=== PATIENT | male | born 1960 | race Caucasian/White ===

== ENCOUNTER → 2019-01-30 11:34 | Outpatient (CLI) | payer MEDICARE, SELFPAY ==
--- NOTE | 2019-01-30 11:43 | CT_ITS ---
CT abdomen pelvis wo con CLINICAL INDICATION: ITS.REASON: LEFT LOWER QUAD PAIN, LEFT FLANK PAIN, HEMATURIA ORDERING PHYSICIAN: Linda Craven APRN PATIENT AGE: 58 years COMPARISON: None TECHNIQUE: Axial images obtained with sagittal and coronal reformats. All CT scans at the facility use one or more dose reduction, viz: automated exposure control, ma/kV adjustment per patient size (including targeted exams where dose is matched to indication, i.e. head), or iterative reconstruction technique. PROCEDURE: Oral Contrast: None IV Contrast: None . FINDINGS: Lung bases are clear. There is diffuse fatty liver infiltration. The gallbladder, spleen, and adrenal glands and pancreas have an unremarkable unenhanced CT appearance. There is a 10 mm nonobstructing stone in the mid polar region of the left kidney. No ureteral calculi are evident. No evidence of appendicitis. There is pancolonic diverticulosis. There is thickening of the proximal sigmoid colon in the left lower quadrant with stranding of the pericolic fat with prominent inflammatory changes surrounding the colon. There are 2 foci of mixed gas and soft tissue density in the left lower quadrant adjacent to the sigmoid colon. This could represent prominent diverticula with inflammatory change. Either one of these areas could represent a contained perforation is well. No distant free air is evident.. No free fluid in the pelvis. No acute bony findings. IMPRESSION: 1. Acute diverticulitis of the sigmoid colon. 2. Prominent inflamed diverticula versus small contained perforations adjacent to the sigmoid colon. No distant free air is evident. Follow-up suggested to confirm resolution. 3. 10 mm nonobstructing stone in the left kidney
== END ==
PROVIDERS: PCP Nurse Practitioner Family; Visit Provider Nurse Practitioner Family
DX: R10.32 Left lower quadrant pain (principal); R31.29 Other microscopic hematuria; R10.9 Unspecified abdominal pain
CPT/HCPCS: 74176

== ENCOUNTER → 2019-01-31 13:03 | Outpatient (CLI) | payer MEDICARE, SELFPAY | PROVIDERS: Visit Provider Nurse Practitioner Family | DX: R10.32 Left lower quadrant pain (principal); R31.29 Other microscopic hematuria | CPT/HCPCS: 87086 ==

== ENCOUNTER 2019-02-05 22:40 | Inpatient (IN) ==
[2019-02-05 23:04] LABS: Basophils % 0.3 % (0.1-2.0); Eosinophils # 0.1 K/mm3 (0.0-0.4); Eosinophils % 1.1 % (0.1-12.0); Hematocrit 46.5 % (42.0-52.0); Hemoglobin 14.5 g/dL (14.1-18.0); Lymphocytes # 1.7 K/mm3 (0.7-4.5); Lymphocytes % 13.8 % (10-50); Mean Corpuscular HGB Conc 31.2 g/dL (31.8-35.4); Mean Corpuscular Hemoglobin 27.8 pg (27.0-31.2); Mean Corpuscular Volume 88.9 fl (80-94); Mean Platelet Volume 7.1 fl (7.4-10.4); Monocytes # 0.9 K/mm3 (0.1-1.0); Neutrophils # 9.6 K/mm3 (1.8-7.8); Neutrophils % 77.8 % (37.0-80.0); Platelet Count 291 K/mm3 (142-424); Red Blood Count 5.23 M/mm3 (4.60-6.20); Red Cell Distribution Width 13.4 % (11.5-17.5); White Blood Count 12.4 K/mm3 (4.8-10.8)
[2019-02-05 23:16] LABS: Albumin Level 3.5 gm/dL (3.4-5.0); Anion Gap 14.6 mEq/L (5-15); Bilirubin,Total 0.7 mg/dL (0.2-1.0); C-Reactive Protein 3.6 mg/L (0.0-0.9); Calcium 8.2 mg/dL (8.5-10.1); Globulin 3.6 gm/dl (1.3-3.2); Potassium 3.6 mmoL/L (3.5-5.1); Total Protein,Serum 7.1 gm/dL (6.4-8.2)
[2019-02-05 23:38] LABS: Erythrocyte Sedimentation Rate 4 mm/hr (0-20)
--- NOTE | 2019-02-05 23:59 | Emergency Department Note ---
ED Disposition Clinical Impression: Diverticulitis Disposition: Admitted As Inpatient Condition on Discharge: Good - Critical Care Critical Care Time: No Attestation: On 02/05/19, the high probability of a clinically significant, sudden or life threatening deterioration of the following system(s) required my full and direct attention, intervention and personal management. The time I documented below is in addition to time spent performing reported procedures but includes the following listed in this critical care notation. Medical Decision Making - Medical Records Medical records reviewed: Yes: I reviewed the patient's medical records. - Tez Inquiry Pt receiving controlled substance: No Vital Signs: 02/05/19 22:47 02/05/19 23:41 Temperature 98.2 F Temperature Source Oral Pulse Rate [Right Brachial] 98 H 89 Respiratory Rate 16 15 Blood Pressure [Right Arm] 164/96 H 158/85 H Blood Pressure Mean [Right Arm] 118 109 02 Sat by Pulse Oximetry 98 98 Oxygen Delivery Method Room Air Room Air - Lab Data Lab results reviewed: Yes: I reviewed the patient's lab results. Lab Results 02/05/19 22:55: WBC 12.4 H, RBC 5.23, Hgb 14.5, Hct 46.5, MCV 88.9, MCH 27.8, MCHC 31.2 L, RDW 13.4, Plt Count 291, MPV 7.1 L, Neut % (Auto) 77.8, Lymph % (Auto) 13.8, [place] % (Auto) 7.0, Eos % (Auto) 1.1, Baso % (Auto) 0.3, Neut # (Auto) 9.6 H, Lymph # (Auto) 1.7, [place] # (Auto) 0.9, Eos # (Auto) 0.1, Baso # (Auto) 0.0, ESR 4 02/05/19 22:55: Sodium 140, Potassium 3.6, Chloride 101, Carbon Dioxide 28, Anion Gap 14.6, BUN 16, Creatinine 1.14, Estimated Creat Clear 94, Estimated GFR 66, Est GFR ( Amer) 80, Glucose 102, Calcium 8.2 L, Total Bilirubin 0.7, AST 16, ALT 42, Alkaline Phosphatase 65, C-Reactive Protein 3.6 H, Total Protein 7.1, Albumin 3.5, Globulin 3.6 H, Albumin/Globulin Ratio 1.0 L, Amylase 39, Lipase 121 02/05/19 22:55: Lactate 1.1 02/06/19 00:03: Urine Color Yellow, Urine Appearance Clear, Urine pH 6.0, Ur Specific [place] <= 1.005, Urine Protein Negative, Urine Glucose (UA) Negative, Urine Ketones Negative, Urine Blood Negative, Urine Nitrate Negative, Urine Bilirubin Negative, Urine Urobilinogen 0.2, Ur Leukocyte Esterase Negative, Amorphous Sediment Trace Result diagrams: 02/05/19 22:55 02/05/19 22:55 Orders (Tests/Meds): ED MEDICATIONS Generic Name Dose Route Start Last Admin Trade Name Freq PRN Reason Stop Dose Admin Sodium Chloride 1,000 mls @ 999 mls/hr 02/05/19 23:00 02/05/19 23:02 Sod Chlor 0.9% 1000ml Bag IV 02/06/19 00:00 999 mls/hr .Q1H1M YANETH Administration Piperacillin Sod/Tazobactam 100 mls @ 200 mls/hr 02/06/19 00:15 02/06/19 00:13 Sod 4.5 gm/ Sodium Chloride IV 02/20/19 00:14 200 mls/hr Q6H YANETH Administration Protocol Discontinued Medications Generic Name Dose Route Start Last Admin Trade Name Freq PRN Reason Stop Dose Admin Ketorolac Tromethamine 30 mg 02/05/19 22:52 02/05/19 23:02 Toradol 30mg/Ml Vial IV 02/05/19 22:53 30 mg ONCE ONE Administration ORDERS Category Date Time Status CT abdomen pelvis wo con Stat Cat Scan 02/05/19 22:52 Taken - CT Data CT Scan: Abdomen, Pelvis Time Received: 00:[address] Reviewed: Yes: I have viewed the radiologist's interpretation Preliminary Findings: Abnormal (see report ) - Physician Consults Physician Consulted: heladio Reason -: Admission Nausea/Vomiting/Diarrhea HPI - General Chief complaint: Abdominal Pain Stated complaint: Cramping and fever Time Seen by Provider: 02/05/19 23:54 Mode of Arrival: Ambulatory Source of Information: Patient, Spouse, Medical Record Limitations: No Limitations Description of Symptoms (Recalled from ER Triage Doc. by RN): Seen by PCP and then ED on Saturday, dx with Diverticulitis, started on Abx and Steriods, told if not any better or the stomach cramping got worse to return to ED. Thinks he was running a fever at home, but does not have a thermometer - afebrile at present. Pain in LLQ and radiating to the mid abdomen. - History of Present Illness HPI Narrative: persistant pain with dec po appetitie and pt presented - for eval - he has been on po abx and has been compliant MD complaint: nausea, abdominal pain Onset (ago): day(s) Associated Abdominal Pain: Yes Location of pain: LLQ Severity: severe Consistency: constant Associated symptoms: denies other symptoms - Related Data Home Medications Medication Instructions Recorded Confirmed ALPRAZolam [Xanax 1mg tab] 1 mg PO BID PRN 02/05/19 02/05/19 Ciprofloxacin HCl [Cipro 500mg 500 mg PO BID 02/05/19 02/05/19 Tab] metroNIDAZOLE [metroNIDAZOLE 500mg 500 mg PO TID 02/05/19 02/05/19 Tablet] Allergies Allergy/AdvReac Type Severity Reaction Status Date / Time No Known Allergies Allergy Verified 02/05/19 22:50 [facility] History - Hepatitis A Screen Drug use history?: No High risk sexual behaviors?: No History of sexually transmitted infection?: No Currently employed?: No Childcare worker?: No Do you have indoor plumbing?: Yes Do you have electricity?: Yes Attestation statement:: This patient has been screened for Hepatitis A risk factors. I have reviewed the patient's past medical history: Yes Medical History: Denies:: Cancer, MRSA Amputation: No Fractures: No - Social History Alcohol Intake: never Occupational Status: employed Housing: house - Psychiatric History Expresses thoughts of harming self/others: None Suicide Plan Description: No Plan ROS Obtained: Yes All systems reviewed & no additional complaints - Constitutional Constitutional: Denies fever(s) - Eyes Eyes: Denies change in vision - ENT Ears, Nose, Mouth, and Throat: Denies sore throat - Cardiovascular Cardiovascular: Denies chest pain - Respiratory Respiratory: No cough - Gastrointestinal Gastrointestingal: Reports: as per HPI, abdominal pain, nausea. Denies: diarrhea, vomiting - Genitourinary Male Genitourinary: Denies hematuria - Musculoskeletal Musculoskeletal: Denies joint swelling - Integumentary/Breasts Skin/Breast: Denies rash - Neurologic Neurologic: Denies seizure-like activity Physical Exam - General General appearance: alert, in no apparent distress - Head Head exam: normocephalic - Eye Eye exam: Present: PERRL, EOMI. Absent: scleral icterus - ENT ENT exam: Present: mucous membranes dry - Neck Neck exam: Absent: trachea midline - Respiratory Respiratory exam: Present: normal lung sounds bilaterally. Absent: respiratory distress - Cardiovascular Cardiovascular exam: Present: regular rate - Abdominal Exam Abdominal exam: Present: soft, tenderness Abdominal tenderness: Present: LLQ, moderate - Extremities Exam Extremities exam: Present: full ROM - Neurological Exam Neurological exam: Present: alert, oriented X3, CN II-XII intact - Psychiatric Psychiatric exam: Present: normal affect - Skin Skin exam: Absent: rash
[2019-02-06 00:09] LABS: Microscopic, Urine URINE MICROSCOPIC (MICROSCOPIC)
[2019-02-06 00:10] LABS: Appearance,Urine CLEAR (Clear); Bilirubin,Urine Negative (Negative); Blood, Urine Negative (Negative); Color,Urine YELLOW (Yellow); Glucose,Urine (UA) Negative (Negative); Ketones,Urine Negative (Negative); Leukocyte Esterase,Urine Negative (Negative); Protein,Urine Negative (Negative); Specific Gravity, Urine <= 1.005 (1.005-1.030); Urobilinogen,Urine 0.2 EU/dl (0.2)
[2019-02-06 00:12] LABS: Amorphous Sediment,Urine Trace /lpf
[2019-02-06 06:48] LABS: Basophils % 0.3 % (0.1-2.0); Eosinophils # 0.1 K/mm3 (0.0-0.4); Eosinophils % 1.1 % (0.1-12.0); Hematocrit 40.9 % (42.0-52.0); Lymphocytes # 1.4 K/mm3 (0.7-4.5); Lymphocytes % 14.3 % (10-50); Mean Corpuscular HGB Conc 31.7 g/dL (31.8-35.4); Mean Corpuscular Hemoglobin 28.2 pg (27.0-31.2); Mean Platelet Volume 6.9 fl (7.4-10.4); Monocytes # 0.8 K/mm3 (0.1-1.0); Monocytes % 7.9 % (1.7-9.3); Neutrophils # 7.5 K/mm3 (1.8-7.8); Neutrophils % 76.3 % (37.0-80.0); Platelet Count 249 K/mm3 (142-424); Red Blood Count 4.59 M/mm3 (4.60-6.20); Red Cell Distribution Width 13.3 % (11.5-17.5); White Blood Count 9.8 K/mm3 (4.8-10.8)
[2019-02-06 06:51] LABS: Anion Gap 11.8 mEq/L (5-15); Calcium 7.8 mg/dL (8.5-10.1); Potassium 3.8 mmoL/L (3.5-5.1)
[2019-02-06 07:02] LABS: Hemoglobin 13.2 g/dL (14.1-18.0)
--- NOTE | 2019-02-06 07:28 | Pharmacy Consult Notes ---
[facility] Pharmacy VTE Monitoring - Patient Demographics Admission date: 02/05/19 Report Date: 02/06/19 Time: 07:28 Allergies/Adverse Reactions: Patient Allergies No Known Allergies Allergy (Verified 02/05/19 22:50) Height: 1.68 m Weight: 95.056 kg Patient Problems: Current Active Problems (Updated 02/06/19 @ 00:20 by Carlos John MD) Diverticulitis (Acute) - VTE Risk Labs: VTE Related Lab Results Hgb 13.2 g/dL (14.1-18.0) L 02/06/19 06:16 Hct 40.9 % (42.0-52.0) L 02/06/19 06:16 Plt Count 249 K/mm3 (142-424) 02/06/19 06:16 BUN 13 mg/dL (7-18) 02/06/19 06:16 Creatinine 0.98 mg/dL (0.70-1.30) 02/06/19 06:16 Estimated Creat Clear 109 mL/min (50-200) 02/06/19 06:16 Was VTE Risk Assessment Performed: Yes VTE Score: 2 VTE Risk Level: Very Low Risk Clinical Trial Participant: No - Prophylaxis Types of VTE Prophylaxis: TEDS Knee High
--- NOTE | 2019-02-06 08:08 | Consult Report ---
*Admission Date: 02/05/19 *Reason for consult:: DIVERTICULITIS *History of present illness: Patient is a 58-year-old white male from [place]. He states that about 2 weeks ago he began experiencing some suprapubic and lower abdominal pain and tenderness. This persisted and he ultimately was seen as an outpatient by his primary care provider 1 week ago. He had a CT scan and was diagnosed with diverticulitis. Patient was started on levofloxacin and metronidazole. He presented to the emergency department late yesterday evening due to some increasing persistent pain and discomfort. He underwent a repeat CT scan which revealed findings confirmed of diverticulitis. Please see radiology report for complete details. He was admitted for inpatient management. He does state that he has had some dark stools. He is never had prior colonoscopy. No documented prior history of diverticulitis. Review of Systems - Review of Systems Review of systems:: pertinent systems reviewed and negative unless documented below - Constitutional Reports anorexia, Denies fever(s) - Eyes Denies loss of vision - ENT Denies abnormal hearing - *Cardiovascular Denies chest pain - *Respiratory Denies shortness of breath - *Gastrointestinal Reports abdominal pain - *Genitourinary Denies difficulty urinating - *Neurologic Denies seizure-like activity - Psychiatric Reports anxiety [facility] History Medical History: Denies:: Cancer, Diabetes Mellitus Type 1, Diabetes Mellitus Type 2, MRSA *Have you ever received a pneumonia vaccine?: No *Have you received a flu vaccine this season?: No Amputation: No Fractures: No - *Social History Educational Level: Attended Grade School Smoking Status: Former smoker Tobacco Type: cigarettes # Packs/Day (cigarettes): 2 Alcohol Intake: current Alcohol Intake Frequency:: a few times a month *Occupational Status:: employed Housing: house *Travel in the last 8 weeks: None - Psychiatric History Expresses thoughts of harming self/others: None Suicide Plan Description: No Plan Family Hx:: Cancer, Heart Attack Meds Home Medications Medication Instructions Recorded Confirmed Type ALPRAZolam [Xanax 1mg tab] 1 mg PO BID PRN 02/05/19 02/05/19 History Ciprofloxacin HCl [Cipro 500mg 500 mg PO BID 02/05/19 02/05/19 History Tab] metroNIDAZOLE [metroNIDAZOLE 500mg 500 mg PO TID 02/05/19 02/05/19 History Tablet] Allergies Allergy/AdvReac Type Severity Reaction Status Date / Time No Known Allergies Allergy Verified 02/05/19 22:50 Exam Vital signs and Labs for Last 24 Hours: Temp Pulse Resp BP Pulse Ox 98.2 F 83 16 124/86 97 02/06/19 07:50 02/06/19 07:50 02/06/19 07:50 02/06/19 07:50 02/06/19 07:50 Laboratory Results - last 24 hr 02/05/19 22:55: WBC 12.4 H, RBC 5.23, Hgb 14.5, Hct 46.5, MCV 88.9, MCH 27.8, MCHC 31.2 L, RDW 13.4, Plt Count 291, MPV 7.1 L, Neut % (Auto) 77.8, Lymph % (Auto) 13.8, [place] % (Auto) 7.0, Eos % (Auto) 1.1, Baso % (Auto) 0.3, Neut # (Auto) 9.6 H, Lymph # (Auto) 1.7, [place] # (Auto) 0.9, Eos # (Auto) 0.1, Baso # (Auto) 0.0, ESR 4 02/05/19 22:55: Sodium 140, Potassium 3.6, Chloride 101, Carbon Dioxide 28, Anion Gap 14.6, BUN 16, Creatinine 1.14, Estimated Creat Clear 94, Estimated GFR 66, Est GFR ( Amer) 80, Glucose 102, Calcium 8.2 L, Total Bilirubin 0.7, AST 16, ALT 42, Alkaline Phosphatase 65, C-Reactive Protein 3.6 H, Total Protein 7.1, Albumin 3.5, Globulin 3.6 H, Albumin/Globulin Ratio 1.0 L, Amylase 39, Lipase 121 02/05/19 22:55: Lactate 1.1 02/06/19 00:03: Urine Color Yellow, Urine Appearance Clear, Urine pH 6.0, Ur Specific [place] <= 1.005, Urine Protein Negative, Urine Glucose (UA) Negative, Urine Ketones Negative, Urine Blood Negative, Urine Nitrate Negative, Urine Bilirubin Negative, Urine Urobilinogen 0.2, Ur Leukocyte Esterase Negative, Amorphous Sediment Trace 02/06/19 06:16: WBC 9.8, RBC 4.59 L, Hgb 13.2 L, Hct 40.9 L, MCV 89.0, MCH 28.2, MCHC 31.7 L, RDW 13.3, Plt Count 249, MPV 6.9 L, Neut % (Auto) 76.3, Lymph % (Auto) 14.3, [place] % (Auto) 7.9, Eos % (Auto) 1.1, Baso % (Auto) 0.3, Neut # (Auto) 7.5, Lymph # (Auto) 1.4, [place] # (Auto) 0.8, Eos # (Auto) 0.1, Baso # (Auto) 0.0 02/06/19 06:16: Sodium 141, Potassium 3.8, Chloride 106, Carbon Dioxide 27, Anion Gap 11.8, BUN 13, Creatinine 0.98, Estimated Creat Clear 109, Estimated GFR 78, Est GFR ( Amer) 95, Glucose 101, Calcium 7.8 L I & O for Last 24 hours: Intake & Output 02/03/19 02/04/19 02/05/19 02/06/19 11:59 11:59 11:59 11:59 Intake Total 1000 / 1000 Balance 1000 / 1000 Weight 209 lb 9 oz - *Routine HEENT Exam Head: Present: normocephalic Eye: Present: EOMI, PERRL ENT: Present: mucous membranes moist - *Routine Neck Exam Present: supple. Absent: lymphadenopathy - *Routine Respiratory Exam Present: CTA bilaterally - *Routine Cardiovascular Exam Present: RRR - *Routine Abdominal Exam Present: soft, normoactive bowel sounds, tenderness Comments: Patient does have tenderness with some guarding without rebound in the suprapubic and left lower quadrant area. - *Routine Extremities Exam Absent: cyanosis, clubbing, edema - *Routine Skin Exam Present: warm. Absent: rash - *Routine Neurological Exam Present: alert, oriented X3 - Detailed Eye Exam Eyelids: Left normal inspection Results - Labs 02/06/19 06:16 02/06/19 06:16 Laboratory Results - last 24 hr 02/05/19 22:55: WBC 12.4 H, RBC 5.23, Hgb 14.5, Hct 46.5, MCV 88.9, MCH 27.8, MCHC 31.2 L, RDW 13.4, Plt Count 291, MPV 7.1 L, Neut % (Auto) 77.8, Lymph % (Auto) 13.8, [place] % (Auto) 7.0, Eos % (Auto) 1.1, Baso % (Auto) 0.3, Neut # (Auto) 9.6 H, Lymph # (Auto) 1.7, [place] # (Auto) 0.9, Eos # (Auto) 0.1, Baso # (Auto) 0.0, ESR 4 02/05/19 22:55: Sodium 140, Potassium 3.6, Chloride 101, Carbon Dioxide 28, Anion Gap 14.6, BUN 16, Creatinine 1.14, Estimated Creat Clear 94, Estimated GFR 66, Est GFR ( Amer) 80, Glucose 102, Calcium 8.2 L, Total Bilirubin 0.7, AST 16, ALT 42, Alkaline Phosphatase 65, C-Reactive Protein 3.6 H, Total Protein 7.1, Albumin 3.5, Globulin 3.6 H, Albumin/Globulin Ratio 1.0 L, Amylase 39, Lipase 121 02/05/19 22:55: Lactate 1.1 02/06/19 00:03: Urine Color Yellow, Urine Appearance Clear, Urine pH 6.0, Ur Specific [place] <= 1.005, Urine Protein Negative, Urine Glucose (UA) Negative, Urine Ketones Negative, Urine Blood Negative, Urine Nitrate Negative, Urine Bilirubin Negative, Urine Urobilinogen 0.2, Ur Leukocyte Esterase Negative, Amorphous Sediment Trace 02/06/19 06:16: WBC 9.8, RBC 4.59 L, Hgb 13.2 L, Hct 40.9 L, MCV 89.0, MCH 28.2, MCHC 31.7 L, RDW 13.3, Plt Count 249, MPV 6.9 L, Neut % (Auto) 76.3, Lymph % (Auto) 14.3, [place] % (Auto) 7.9, Eos % (Auto) 1.1, Baso % (Auto) 0.3, Neut # (Auto) 7.5, Lymph # (Auto) 1.4, [place] # (Auto) 0.8, Eos # (Auto) 0.1, Baso # (Auto) 0.0 02/06/19 06:16: Sodium 141, Potassium 3.8, Chloride 106, Carbon Dioxide 27, Anion Gap 11.8, BUN 13, Creatinine 0.98, Estimated Creat Clear 109, Estimated GFR 78, Est GFR ( Amer) 95, Glucose 101, Calcium 7.8 L Assessment and Plan - Assessment and plan all Dx Assessment and Plan for all problems:: Patient has complicated diverticulitis with failure of outpatient management. I would recommend broad-spectrum intravenous antibiotics. He may go ahead and have a clear liquid diet as there are no indications for absolute immediate urgent surgical intervention at this time. However, I did explain to the patient that he could require surgical intervention with need for colectomy and colostomy if he continues to have clinical deterioration and fail nonoperative management. However, hopefully he shows improvement and is ultimately able to be managed without operative intervention. If so I would plan for a follow-up colonoscopy in several weeks.
--- NOTE | 2019-02-06 17:11 | History & Physical Report ---
*Admission Date: 02/05/19 *Chief complaint: worsening abdominal pain *History of present illness: Mr. Aaron a 58-year-old gentleman initiated on antibiotics 7 days ago for diverticulitis. His symptoms initially began 2 weeks ago with suprapubic pain leading to presentation to the PCP 1 week ago. Had been doing well until the past day or 2 when he developed worsening abdominal pain. The worsening pain caused him to come back to the ER for further assessment. He had a CT scan performed at initial presentation and the diagnosis of diverticulitis. Patient was started on levofloxacin and metronidazole. He presented to the emergency department late yesterday evening due to some increasing persistent pain and discomfort. He underwent a repeat CT scan which revealed findings confirmed of diverticulitis. Please see radiology report for complete details. There is concern for slight increase in pericolonic air bubbles and possible worsening of his diverticulitis. He was admitted for inpatient management. He does state that he has had some dark stools. He is never had prior colonoscopy. No documented prior history of diverticulitis. He was initiated on broad-spectrum antibiotics with transition to Invanz this morning. Currently on a liquid diet. Surgery was consulted for possible colonoscopy versus other intervention pending evaluation. Patient denies any fevers, nausea vomiting, diarrhea, chest pain, shortness of breath, dysuria. [facility] History I have reviewed the patient's past medical history: Yes Medical History: Denies:: Cancer, Diabetes Mellitus Type 1, Diabetes Mellitus Type 2, MRSA *Have you ever received a pneumonia vaccine?: No *Have you received a flu vaccine this season?: No Amputation: No Fractures: No - *Social History Educational Level: Attended Grade School Smoking Status: Former smoker Tobacco Type: cigarettes # Packs/Day (cigarettes): 2 Alcohol Intake: current Alcohol Intake Frequency:: a few times a month *Occupational Status:: employed Housing: house *Travel in the last 8 weeks: None - Psychiatric History Expresses thoughts of harming self/others: None Suicide Plan Description: No Plan Family Hx:: Cancer, Heart Attack Review of Systems - Review of Systems Review of systems:: pertinent systems reviewed and negative unless documented below - *Neurologic Denies abnormal hearing, Denies loss of vision, Denies seizure-like activity Meds Home Medications Medication Instructions Recorded Confirmed Type ALPRAZolam [Xanax 1mg tab] 1 mg PO TID PRN 06/20/19 06/21/19 History Ciprofloxacin HCl [Cipro 500mg 500 mg PO BID 02/05/19 02/05/19 History Tab] metroNIDAZOLE [metroNIDAZOLE 500mg 500 mg PO TID 02/05/19 02/05/19 History Tablet] Allergies Allergy/AdvReac Type Severity Reaction Status Date / Time No Known Allergies Allergy Verified 02/05/19 22:50 Exam Vital signs and Labs for Last 24 Hours: Temp Pulse Resp BP Pulse Ox 98.6 F 81 16 123/82 99 02/06/19 15:30 02/06/19 15:30 02/06/19 15:30 02/06/19 15:30 02/06/19 15:30 Laboratory Results - last 24 hr 02/05/19 22:55: WBC 12.4 H, RBC 5.23, Hgb 14.5, Hct 46.5, MCV 88.9, MCH 27.8, MCHC 31.2 L, RDW 13.4, Plt Count 291, MPV 7.1 L, Neut % (Auto) 77.8, Lymph % (Auto) 13.8, [place] % (Auto) 7.0, Eos % (Auto) 1.1, Baso % (Auto) 0.3, Neut # (Auto) 9.6 H, Lymph # (Auto) 1.7, [place] # (Auto) 0.9, Eos # (Auto) 0.1, Baso # (Auto) 0.0, ESR 4 02/05/19 22:55: Sodium 140, Potassium 3.6, Chloride 101, Carbon Dioxide 28, Anion Gap 14.6, BUN 16, Creatinine 1.14, Estimated Creat Clear 94, Estimated GFR 66, Est GFR ( Amer) 80, Glucose 102, Calcium 8.2 L, Total Bilirubin 0.7, AST 16, ALT 42, Alkaline Phosphatase 65, C-Reactive Protein 3.6 H, Total Protein 7.1, Albumin 3.5, Globulin 3.6 H, Albumin/Globulin Ratio 1.0 L, Amylase 39, Lipase 121 02/05/19 22:55: Lactate 1.1 02/06/19 00:03: Urine Color Yellow, Urine Appearance Clear, Urine pH 6.0, Ur Specific [place] <= 1.005, Urine Protein Negative, Urine Glucose (UA) Negative, Urine Ketones Negative, Urine Blood Negative, Urine Nitrate Negative, Urine Bilirubin Negative, Urine Urobilinogen 0.2, Ur Leukocyte Esterase Negative, Amorphous Sediment Trace 02/06/19 06:16: WBC 9.8, RBC 4.59 L, Hgb 13.2 L, Hct 40.9 L, MCV 89.0, MCH 28.2, MCHC 31.7 L, RDW 13.3, Plt Count 249, MPV 6.9 L, Neut % (Auto) 76.3, Lymph % (Auto) 14.3, [place] % (Auto) 7.9, Eos % (Auto) 1.1, Baso % (Auto) 0.3, Neut # (Auto) 7.5, Lymph # (Auto) 1.4, [place] # (Auto) 0.8, Eos # (Auto) 0.1, Baso # (Auto) 0.0 02/06/19 06:16: Sodium 141, Potassium 3.8, Chloride 106, Carbon Dioxide 27, Anion Gap 11.8, BUN 13, Creatinine 0.98, Estimated Creat Clear 109, Estimated GFR 78, Est GFR ( Amer) 95, Glucose 101, Calcium 7.8 L I & O for Last 24 hours: Intake & Output 02/03/19 02/04/19 02/05/19 02/06/19 23:59 23:59 23:59 23:59 Intake Total 1869 Balance 1869 Weight 94.801 kg 95.056 kg - *Routine HEENT Exam Head: Present: normocephalic Eye: Present: EOMI, PERRL ENT: Present: mucous membranes moist - *Routine Neck Exam Present: supple. Absent: lymphadenopathy - *Routine Respiratory Exam Present: CTA bilaterally - *Routine Cardiovascular Exam Present: RRR - *Routine Abdominal Exam Present: soft Comments: Tender in right and left lower quadrants, exquisite left lower quadrant. No rebound, guarding present with palpation on left - *Routine Rectal Exam Patient deferred: visual exam - *Routine Exam Patient deferred: penile exam - *Routine Extremities Exam Absent: cyanosis, clubbing, edema - *Routine Skin Exam Present: warm. Absent: rash - *Routine Neurological Exam Present: alert, oriented X3. Absent: altered mental status Assessment and Plan (1) Obesity (BMI 30.0-34.9) Current visit: Yes Status: Chronic Category: Medical Code(s): E66.9 - Obesity, unspecified Complicates all aspects of care (2) Diverticulitis Current visit: Yes Status: Acute Category: Medical Code(s): K57.92 - Diverticulitis of intestine, part unspecified, without perforation or abscess without bleeding Failed outpatient therapy. Surgery consulted, appreciate recommendations. Broaden antibiotics to Invanz. Will monitor over the course the weekend to assess for improvement. Recommendations as follows: complicated diverticulitis with failure of outpatient management - broad-spectrum intravenous antibiotics - He may go ahead and have a clear liquid diet as there are no indications for absolute immediate urgent surgical intervention at this time. - if tolerates medical management, would plan for a follow-up colonoscopy in several weeks.
[2019-02-07 06:35] LABS: Basophils % 0.3 % (0.1-2.0); Eosinophils # 0.1 K/mm3 (0.0-0.4); Eosinophils % 1.2 % (0.1-12.0); Hemoglobin 12.7 g/dL (14.1-18.0); Lymphocytes # 1.6 K/mm3 (0.7-4.5); Lymphocytes % 17.6 % (10-50); Mean Corpuscular HGB Conc 31.1 g/dL (31.8-35.4); Mean Corpuscular Volume 90.2 fl (80-94); Mean Platelet Volume 7.1 fl (7.4-10.4); Monocytes # 0.7 K/mm3 (0.1-1.0); Monocytes % 7.2 % (1.7-9.3); Neutrophils # 6.6 K/mm3 (1.8-7.8); Neutrophils % 73.7 % (37.0-80.0); Platelet Count 262 K/mm3 (142-424); Red Blood Count 4.54 M/mm3 (4.60-6.20); Red Cell Distribution Width 13.3 % (11.5-17.5)
[2019-02-07 06:39] LABS: Anion Gap 10.9 mEq/L (5-15); Calcium 7.9 mg/dL (8.5-10.1); Potassium 3.9 mmoL/L (3.5-5.1)
--- NOTE | 2019-02-07 07:50 | Progress Note ---
Internal Medicine - PN: Subj *Date: 02/07/19 *Time: 07:49 Interval history: Patient feels much better, has been ambulating about the room. Has had a couple of soft stools. No blood, no fever. Exam Vital signs and Labs for Last 24 Hours: Temp Pulse Resp BP Pulse Ox 98.1 F 76 17 94/56 L 95 02/07/19 04:36 02/07/19 04:36 02/07/19 04:36 02/07/19 04:36 02/07/19 04:36 Laboratory Results - last 24 hr 02/07/19 05:50: WBC 9.0, RBC 4.54 L, Hgb 12.7 L, Hct 41.0 L, MCV 90.2, MCH 28.0, MCHC 31.1 L, RDW 13.3, Plt Count 262, MPV 7.1 L, Neut % (Auto) 73.7, Lymph % (Auto) 17.6, [place] % (Auto) 7.2, Eos % (Auto) 1.2, Baso % (Auto) 0.3, Neut # (Auto) 6.6, Lymph # (Auto) 1.6, [place] # (Auto) 0.7, Eos # (Auto) 0.1, Baso # (Auto) 0.0 02/07/19 05:50: Sodium 141, Potassium 3.9, Chloride 107, Carbon Dioxide 27, Anion Gap 10.9, BUN 8 D, Creatinine 0.89, Estimated Creat Clear 116, Estimated GFR 87, Est GFR ( Amer) 106, Glucose 93, Calcium 7.9 L I & O for Last 24 hours: Intake & Output 02/04/19 02/05/19 02/06/19 02/07/19 11:59 11:59 11:59 11:59 Intake Total 1000 / 1000 3334 / 3334 Balance 1000 / 1000 3334 / 3334 Weight 209 lb 9 oz 203 lb 1 oz Narrative: Heart rate regular, good air movement, clear lungs. Neurologically intact, pleasant, talkative, walks about the room without problems. Abdomen soft and very minimal tenderness in the left lower quadrant with vigorous palpation, no CVA tenderness, no distal perfusion problems. Assessment and Plan (1) Obesity (BMI 30.0-34.9) Current visit: Yes Status: Chronic Category: Medical Code(s): E66.9 - Obesity, unspecified (2) Diverticulitis Current visit: Yes Status: Acute Category: Medical Code(s): K57.92 - Diverticulitis of intestine, part unspecified, without perforation or abscess without bleeding (3) Diverticulitis of intestine with perforation and bleeding without abscess Current visit: Yes Status: Acute Category: Medical Code(s): K57.81 - Diverticulitis of intestine, part unspecified, with perforation and abscess with bleeding Agree with ongoing conservative management, patient has improved. If labs look good tomorrow and patient has responded to full liquids would consider discharged home with aggressive antibiotic therapy and surgery follow-up for colonoscopy in the near future.
--- NOTE | 2019-02-07 08:32 | Progress Note ---
Subjective Patient reports: feels better Narrative: Patient feels much better. He has been ambulating. He is tolerating clear liquids without any difficulty and has moved his bowels. Exam Vital signs and Labs for Last 24 Hours: Temp Pulse Resp BP Pulse Ox 97.8 F 124 H 16 120/68 97 02/07/19 08:00 02/07/19 08:00 02/07/19 08:00 02/07/19 08:00 02/07/19 08:00 Laboratory Results - last 24 hr 02/07/19 05:50: WBC 9.0, RBC 4.54 L, Hgb 12.7 L, Hct 41.0 L, MCV 90.2, MCH 28.0, MCHC 31.1 L, RDW 13.3, Plt Count 262, MPV 7.1 L, Neut % (Auto) 73.7, Lymph % (Auto) 17.6, [place] % (Auto) 7.2, Eos % (Auto) 1.2, Baso % (Auto) 0.3, Neut # (Auto) 6.6, Lymph # (Auto) 1.6, [place] # (Auto) 0.7, Eos # (Auto) 0.1, Baso # ( Auto) 0.0 02/07/19 05:50: Sodium 141, Potassium 3.9, Chloride 107, Carbon Dioxide 27, Anion Gap 10.9, BUN 8 D, Creatinine 0.89, Estimated Creat Clear 116, Estimated GFR 87, Est GFR ( Amer) 106, Glucose 93, Calcium 7.9 L I & O for Last 24 hours: Intake & Output 02/04/19 02/05/19 02/06/19 02/07/19 11:59 11:59 11:59 11:59 Intake Total 1000 / 1000 4054 / 4054 Balance 1000 / 1000 4054 / 4054 Weight 209 lb 9 oz 203 lb 1 oz - *Routine Abdominal Exam Present: soft. Absent: tenderness Progress Note: A&P (1) Obesity (BMI 30.0-34.9) Status: Chronic Current Visit: Yes (2) Diverticulitis Status: Acute Current Visit: Yes (3) Diverticulitis of intestine with perforation and bleeding without abscess Status: Acute Current Visit: Yes Assessment and Plan for All Diagnoses:: Advance diet. Probable discharge tomorrow with completion of outpatient antibiotics. Colonoscopy in several weeks.
[2019-02-08 07:33] LABS: Basophils % 0.2 % (0.1-2.0); Eosinophils # 0.2 K/mm3 (0.0-0.4); Eosinophils % 1.9 % (0.1-12.0); Hematocrit 41.1 % (42.0-52.0); Lymphocytes # 1.6 K/mm3 (0.7-4.5); Lymphocytes % 20.7 % (10-50); Mean Corpuscular HGB Conc 31.6 g/dL (31.8-35.4); Mean Corpuscular Hemoglobin 28.4 pg (27.0-31.2); Mean Corpuscular Volume 89.9 fl (80-94); Mean Platelet Volume 7.1 fl (7.4-10.4); Monocytes # 0.5 K/mm3 (0.1-1.0); Monocytes % 6.4 % (1.7-9.3); Neutrophils # 5.5 K/mm3 (1.8-7.8); Neutrophils % 70.9 % (37.0-80.0); Platelet Count 251 K/mm3 (142-424); Red Blood Count 4.57 M/mm3 (4.60-6.20); Red Cell Distribution Width 13.3 % (11.5-17.5); White Blood Count 7.8 K/mm3 (4.8-10.8)
[2019-02-08 07:44] LABS: Albumin Level 2.9 gm/dL (3.4-5.0); Albumin/Globulin Ratio 0.8 (1.1-1.8); Anion Gap 10.1 mEq/L (5-15); Bilirubin,Total 0.5 mg/dL (0.2-1.0); Calcium 8.2 mg/dL (8.5-10.1); Globulin 3.5 gm/dl (1.3-3.2); Potassium 4.1 mmoL/L (3.5-5.1); Total Protein,Serum 6.4 gm/dL (6.4-8.2)
--- NOTE | 2019-02-08 08:06 | Discharge Summary ---
General - General Admission date:: 02/06/19 Discharge date: 02/08/19 HPI HPI: Mr. Aaron a 58-year-old gentleman initiated on antibiotics 7 days ago for diverticulitis. His symptoms initially began 2 weeks ago with suprapubic pain leading to presentation to the PCP 1 week ago. Had been doing well until the past day or 2 when he developed worsening abdominal pain. The worsening pain caused him to come back to the ER for further assessment. He had a CT scan performed at initial presentation and the diagnosis of diverticulitis. Patient was started on levofloxacin and metronidazole. He presented to the emergency department late yesterday evening due to some increasing persistent pain and discomfort. He underwent a repeat CT scan which revealed findings confirmed of diverticulitis. Please see radiology report for complete details. There is concern for slight increase in pericolonic air bubbles and possible worsening of his diverticulitis. He was admitted for inpatient management. He does state that he has had some dark stools. He is never had prior colonoscopy. No documented prior history of diverticulitis. He was initiated on broad-spectrum antibiotics with transition to Invanz this morning. Currently on a liquid diet. Surgery was consulted for possible colonoscopy versus other intervention pending evaluation. Patient denies any fevers, nausea vomiting, diarrhea, chest pain, shortness of breath, dysuria. Hospital Course Hospital Course: Patient was admitted, placed on Zosyn and tolerated this very nicely. His pain and swelling of the abdomen resolved very nicely and serial exam showed improvement. CT scan was noted. Surgical consultation agreed with conservative management-much appreciated. Over the next couple days he improved as noted, no fevers. Bowel movements normalized and he was able to eat a full liquid diet. This morning he is doing well, he will be discharged home with Augmentin and clindamycin for the next week. We will see him in our offices on of this week, February 12 for follow-up and to make sure his colonoscopy has been scheduled. Objective Vital signs: Temp Pulse Resp BP Pulse Ox 98.1 F 65 17 113/62 97 02/08/19 04:00 02/08/19 04:00 02/08/19 04:00 02/08/19 04:00 02/08/19 04:00 Narrative: Alert, pleasant. Oriented x3. Lungs clear. Heart rate regular. Abdomen soft, no tenderness in the lower quadrants. No CVA tenderness. No fevers. No distal edema. Results Labs on day of discharge: Labs from last 24 hours 02/08/19 02/08/19 06:36 06:36 WBC 7.8 RBC 4.57 L Hgb 13.0 L Hct 41.1 L MCV 89.9 MCH 28.4 MCHC 31.6 L RDW 13.3 Plt Count 251 MPV 7.1 L Neut % (Auto) 70.9 Lymph % (Auto) 20.7 [place] % (Auto) 6.4 Eos % (Auto) 1.9 Baso % (Auto) 0.2 Neut # (Auto) 5.5 Lymph # (Auto) 1.6 [place] # (Auto) 0.5 Eos # (Auto) 0.2 Baso # (Auto) 0.0 Sodium 142 Potassium 4.1 Chloride 108 H Carbon Dioxide 28 Anion Gap 10.1 BUN 8 Creatinine 0.86 Estimated Creat Clear 120 Estimated GFR 91 Est GFR ( Amer) 110 Glucose 87 Calcium 8.2 L Total Bilirubin 0.5 AST 20 ALT 37 Alkaline Phosphatase 51 Total Protein 6.4 Albumin 2.9 L Globulin 3.5 H Albumin/Globulin Ratio 0.8 L DS: Diagnosis - Discharge Diagnosis (1) Obesity (BMI 30.0-34.9) Status: Chronic (2) Diverticulitis Status: Acute (3) Diverticulitis of intestine with perforation and bleeding without abscess Status: Acute Discharge Plan - Patient Discharge Instructions ACTIVITY: Continue current activity DIET: advance to your usual diet Patient Instructions: Diverticulitis, DI for Diverticulitis - Follow up Plan Follow up with: Bassam Benitez MD [Staff Physician] - 02/12/19 12:00 pm Disposition: Home, Self-Fdc Medications: Home Medications Medication Instructions Recorded Confirmed Type ALPRAZolam [Xanax 1mg tab] 1 mg PO TID PRN 02/05/19 02/06/19 History Ciprofloxacin HCl [Cipro 500mg 500 mg PO BID 02/05/19 02/05/19 History Tab] metroNIDAZOLE [metroNIDAZOLE 500mg 500 mg PO TID 02/05/19 02/05/19 History Tablet] Amoxicillin/Potassium Clav 1 tab PO Q12H #14 tab 02/08/19 Rx [Augmentin 875-125 Tablet] Clindamycin HCl [Clindamycin HCl 300 mg PO Q8 #21 cap 02/08/19 Rx 300mg Cap] Prescriptions/Medication Reconciliation: New Amoxicillin/Potassium Clav [Augmentin 875-125 Tablet] 1 tab PO Q12H #14 tab Clindamycin HCl [Clindamycin HCl 300mg Cap] 300 mg PO Q8 #21 cap Continued ALPRAZolam [Xanax 1mg tab] 1 mg PO TID PRN PRN Reason: Anxiety Discontinued metroNIDAZOLE [metroNIDAZOLE 500mg Tablet] 500 mg PO TID Ciprofloxacin HCl [Cipro 500mg Tab] 500 mg PO BID
== END 2019-02-08 08:45 | disposition home or self-care (01) | DRG 379 ==
LOC: ER 22:40 → 2ND 02-06 00:13
PROVIDERS: ADMIT Internal Medicine Adolescent Medicine; ATTEND Internal Medicine Adolescent Medicine
CPT/HCPCS: 36415; 74176; 80048; 80053; 81001; 82150; 83605; 83690; 85025; 85651; 86140; 96365; 96367; 96375; 99284; J1335; J2543

== ENCOUNTER → 2019-03-18 08:59 | Outpatient (CLI) | payer MEDICARE, SELFPAY ==
[2019-03-18 09:03] LABS: Adenovirus F 40/41, stool Not Detected (NotDetected); Astrovirus Not Detected (NotDetected); Campylobacter Not Detected (NotDetected); Cryptosporidium Not Detected (NotDetected); Cyclospora Cayetanesis Not Detected (NotDetected); Entamoeba histolytica Not Detected (NotDetected); Enteroaggregative E coli Not Detected (NotDetected); Enterotoxigenic E coli Not Detected (NotDetected); Giardia lamblia Not Detected (NotDetected); Norovirus Not Detected (NotDetected); Plesimonas Shigalloides, PCR Not Detected (NotDetected); Rotavirus A Not Detected (NotDetected); Salmonella, PCR Not Detected (NotDetected); Sapovirus Not Detected (NotDetected); Shiga-like toxin E coli Not Detected (NotDetected); Shigella Enterovasive E coli Not Detected (NotDetected); Vibrio Cholerae Not Detected (NotDetected); Vibrio, PCR Not Detected (NotDetected); Yersinia Entercolitica, PCR Not Detected (NotDetected)
[2019-03-18 16:49] LABS: Clostridium Difficile A/B, PCR Detected (NotDetected); Enteropathogenic E coli Detected (NotDetected)
== END ==
PROVIDERS: PCP Internal Medicine Adolescent Medicine; Visit Provider Internal Medicine Adolescent Medicine
DX: A04.71 Enterocolitis due to Clostridium difficile, recurrent (principal); R19.5 Other fecal abnormalities; R19.7 Diarrhea, unspecified
CPT/HCPCS: 87506

== ENCOUNTER → 2020-06-20 10:01 | Outpatient (CLI) | payer MEDICARE, SELFPAY ==
[2020-06-20 11:55] LABS: Coronavirus 19 IgG Antibody Negative (Negative); Coronavirus 19 IgM Antibody Negative (Negative)
== END ==
PROVIDERS: Visit Provider Surgery
DX: Z01.818 Encounter for other preprocedural examination (principal); Z12.11 Encounter for screening for malignant neoplasm of colon; Z86.010 Personal history of colon polyps
CPT/HCPCS: 36415; 86328

== ENCOUNTER 2020-06-21 07:53 | Day surgery (SDC) | payer MEDICARE, SELFPAY ==
[2020-06-15 12:06] VITALS: BMI 34.9
[2020-06-21] VITALS (7 sets, daily range): BP systolic 86–159; BP diastolic 58–89; PULSE 53–79; RESP 16–20; TEMP 36.1–36.6; O2SAT 95–99
--- NOTE | 2020-06-21 09:15 | P.PN_ITS ---
[facility] Anesthesia Checklist - Patient Identification Patient Identification: Arm Band, Verbal (Name & ) - Structural Data Admitted From: Home Planned Operative Procedure/s: colon Consent for Planned Operative Procedure(s) Verified: Yes Verified Documents: History and Physical - NPO Status Verified Time NPO: 00:00 - Additional verifications Patient : No Anesthesia Reactions: No Hx Blood Transfusions: No Blood Transfusion Reaction: No Cephalosporin Allergy: No Previous Colonoscopy: Yes - Cardiovascular Assessment Heart Sounds: S1 & S2 Pulse Strength: Baseline Pulse Rhythm: Regular Peripheral Edema: No - Airway Assessment C-Spine Mobility Assessed: Yes TMJ Mobility Assessed: Yes Dentition: Edentulous - Neurological Assessment Level of Consciousness: Awake, Alert, Appropriate Hx Seizures: No Numbness or tingling in extremities: No - Anesthesia Plan Anesthesia Risk discussed: Yes Anesthesia Plan: Verified ASA Class: II Anesthesia Type: MAC [facility] History I have reviewed the patient's past medical history: Yes Medical History: Reports:: Anxiety Denies:: Cancer, Diabetes Mellitus Type 1, Diabetes Mellitus Type 2, Internal Pacemaker, Lung Disease, MRSA, Seizures *Have you ever received a pneumonia vaccine?: No *Have you received a flu vaccine this season?: No Anesthesia experience/problems:: none Other Surgeries: Yes: No Previous Surgery, Colonoscopy, Other. No: Pacemaker Amputation: No Fractures: No - *Social History Last grade of school completed: None Smoking Status: Former smoker Tobacco Type: cigarettes # Packs/Day (cigarettes): 2 Alcohol Intake: current Alcohol Intake Frequency:: a few times a week Substance Use Type: other *Occupational Status:: disabled Housing: house Household Members: spouse, family, children *Travel in the last 8 weeks: None - Psychiatric History Pschychiatric History:: Reports:: Anxiety Family Hx:: Cancer, Heart Attack
--- NOTE | 2020-06-21 10:03 | P.PCN_ITS ---
- Procedure: Date: 06/21/20 Patient Date of :: 1960 Procedure Performed:: Total colonoscopy to terminal ileum with polypectomy using biopsy forceps and hot snare Indications:: Patient presents for follow-up colonoscopy. He is a 59-year-old white male who is a lifelong resident of [place]. His primary care provider is Ladarius Antonio MD. Last year he had presented and had diverticulitis requiring inpatient stay. Colonoscopy was performed which revealed pandiverticulosis with most pronounced diverticular disease in the sigmoid colon without diverticulitis. He had transverse colon tubular adenoma. He had 2 quite large polypoid lesions in the sigmoid colon removed which returned as tubulovillous adenoma without dysplasia. I recommended a one-year follow-up colonoscopy. Performing Provider:: Sean Matos MD Referring Provider:: Ladarius Antonio MD Sedation:: MAC sedation Procedure:: Patient was taken to endoscopy procedure room. He was positioned in a lateral decubitus position. Adequate intravenous sedation was achieved. Please note that the patient required a significant amount of administration of anesthesia to achieve adequate sedation. Variable stiffness Olympus colonoscope was inserted via the anus. It was advanced to the cecum. Colonic preparation was fair but adequate visualization was achieved with thorough irrigation and suctioning. Ileocecal valve and appendiceal orifice were clearly identified. Colonoscope was slowly withdrawn through the colon with careful surveillance. Patient had significant pandiverticulosis. In the distal transverse colon there were a couple of diminutive tiny polyps removed with cold biopsy forceps. Colonoscope was advanced withdrawn through the remainder of the colon. He did have pronounced diverticuli in the sigmoid colon. Area where he previously had tubulovillous adenomas removed was identified as it had been tattooed with Miriam ink. This was at approximately 35 cm from the anal verge. At approximately 30 cm there was adenomatous appearing polyp which was removed with hot snare. Colonoscope was withdrawn through the remainder of the colon and retroflexion in the rectum revealed no evidence of any pathologic internal hemorrhoids. Colonoscope was withdrawn. Findings:: Pandiverticulosis Moderate sigmoid polyp at 30 cm measuring at least 10 mm removed with hot snare Tiny diminutive polyps in the distal transverse colon removed with cold biopsy forceps. Recommendations:: Likely repeat colonoscopy in about 2 years Complications:: None Estimated blood obtained (mL): 2
== END 2020-06-21 10:48 | disposition home or self-care (01) ==
LOC: OUTP 07:55
PROVIDERS: PCP Family Medicine; Visit Provider Surgery
PROC: 0DJD8ZZ Inspection of Lower Intestinal Tract, Via Natural or Artificial Opening Endoscopic (ICD-10-PCS; CPT 45380; principal; 2020-06-21 09:30)
DX: Z12.11 Encounter for screening for malignant neoplasm of colon (principal); Z86.010 Personal history of colon polyps; Z87.19 Personal history of other diseases of the digestive system; K57.30 Diverticulosis of large intestine without perforation or abscess without bleeding; K63.5 Polyp of colon; F41.9 Anxiety disorder, unspecified; Z80.9 Family history of malignant neoplasm, unspecified; Z82.49 Family history of ischemic heart disease and other diseases of the circulatory system
CPT/HCPCS: 45380; 45385; 88305

== ENCOUNTER 2021-06-26 14:59 | Emergency (ER) | payer MEDICARE, SELFPAY ==
[2021-06-26 15:30] VITALS: BP 140/90; PULSE 85; RESP 20; TEMP 36.9; O2SAT 99; BMI 33.2
--- NOTE | 2021-06-26 15:53 | HMH.EDUTC ---
[facility] Disposition Clinical Impression: Sinusitis Qualifiers: Sinusitis location: unspecified location Chronicity: unspecified Qualified Code(s): J32.9 - Chronic sinusitis, unspecified Disposition: Home, Self-Care Condition on Discharge: Good Instructions: Sinusitis, DI for Sinusitis, Amoxicillin and Clavulanic Acid Additional Instructions: *Monitor Temp, Over the counter Motrin or Tylenol as directed/as needed Tylenol every 4 hours and Motrin every 6 hours (as long as your family doctor has told you that you can take it) for fever or pain. and straight to ER if unable to lower temp less than 101.0 after medication given *Warm salt water gargles may help to soothe the throat *Throat Lozenges *Warm fluids like tea with honey may help to soothe the throat *Sleep elevated *Humidifier/Vaporizer *Flonase 2 sprays in each nostril daily but be aware that it may take 2-3 days before you notice improvement Take medication as prescribed Follow up with your Family Doctor if no improvement Follow up IMMEDIATELY for new or worsening symptoms or no Noticeable improvement over the next 48-72 hours. 911 for difficulty breathing or swallowing Prescriptions: Amoxicillin/Potassium Clav [Augmentin 875-125 Tablet] 1 tab PO Q12H 7 Days #14 tab Transmission Status: Pending to [facility] Referrals: Joel Antonio MD [Primary Care Provider] - As needed Time of Disposition: 16:06 Medical Decision Making - Etz Inquiry Pt receiving controlled substance: No Tez was queried for this patient: No Vital Signs: 06/26/21 15:30 Temperature 98.4 F Temperature Source Oral Pulse Rate [Left Brachial] 85 Respiratory Rate 20 Blood Pressure [Left Arm] 140/90 Blood Pressure Mean [Left Arm] 106 Blood Pressure Source [Left Arm] Automatic Cuff Blood Pressure Position [Left Arm] Sitting 02 Sat by Pulse Oximetry 99 Oxygen Delivery Method Room Air [facility] HPI - General Stated complaint: cough sore throat Time Seen by Provider: 06/26/21 15:53 Mode of Arrival: Ambulatory Source of Information: Patient Limitations: No Limitations Description of Symptoms (Recalled from Triage Doc. by RN): PATIENT C/O EAR/SINUS DRAINAGE, COUGH, AND SORE THROAT HEENT Symptoms (Recalled from RN notes): Yes Resp Symptoms (Recalled from RN notes): Yes Skin Symptoms (Recalled from RN notes): No MS Symptoms (Recalled from RN notes): No Functional Status (Recalled from RN notes): WNL - History of Present Illness Provider Complaint: Patient states that he has been having sore throat, bilateral ear pain and itchyness and sinus congestion and feeling stopped up States that it started last week and has continued to get worse so he come in to get checked and see if may need some antibiotics to clear it up - Related Data Home Medications Medication Instructions Recorded Confirmed ALPRAZolam [Xanax 1mg tab] 1 mg PO TID PRN 02/05/19 06/26/21 Previous Rx's Medication Instructions Recorded Amoxicillin/Potassium Clav 1 tab PO Q12H 7 Days #14 tab 06/26/21 [Augmentin 875-125 Tablet] Allergies Allergy/AdvReac Type Severity Reaction Status Date / Time No Known Allergies Allergy Verified 07/04/20 13:16 - Worker's Comp Is this a Worker's Comp case?: No [facility] History - Hepatitis A Screen Drug use history?: No High risk sexual behaviors?: No History of sexually transmitted infection?: No Currently employed?: No Childcare worker?: No Do you have indoor plumbing?: Yes Do you have electricity?: Yes Attestation statement:: This patient has been screened for Hepatitis A risk factors. I have reviewed the patient's past medical history: Yes Medical History: Reports:: Anxiety Denies:: Cancer, Diabetes Mellitus Type 1, Diabetes Mellitus Type 2, Internal Pacemaker, Lung Disease, MRSA, Seizures Other Medical History: Denies: Blood Transfusion Reaction Other Surgeries: Yes: No Previous Surgery, Colonoscopy, Other. No: Pacemaker Amputation:
[2021-06-26 16:23] VITALS: BP 140/90; PULSE 85; RESP 20; TEMP 36.9; O2SAT 99
== END 2021-06-26 16:29 | disposition home or self-care (01) ==
PROVIDERS: Emergency Provider Nurse Practitioner; PCP Family Medicine
DX: J32.9 Chronic sinusitis, unspecified (principal); F41.9 Anxiety disorder, unspecified
CPT/HCPCS: G0463; 99202

== ENCOUNTER → 2022-04-19 11:00 | Outpatient (CLI) | payer MEDICARE, SELFPAY ==
[2022-04-19 18:13] LABS: Alanine Aminotransferase 35 U/L (12-78); Albumin Level 4.5 g/dl (3.5-5.0); Albumin/Globulin Ratio 1.6 (1.1-1.8); Alkaline Phosphatase 93 U/L (38-126); Anion Gap 12.6 mEq/L (5-15); Aspartate Amino Transferase 35 U/L (17-59); Bilirubin,Total 0.5 mg/dl (0.2-1.3); Blood Urea Nitrogen 13 mg/dl (9-20); Calcium 9.4 mg/dl (8.4-10.2); Carbon Dioxide 28 mmol/L (22.0-30.0); Chloride 102 mmol/L (98-107); Chol/HDL Ratio 3.1 (1-3.5); Cholesterol 235 mg/dl (140-200); Estimated Glomerular Filt Rate 98 ml/min (>60); GFR (African American) 119 ML/MIN (>60); Globulin 2.8 g/dL (1.3-3.2); Glucose 104 mg/dl (74-100); HDL Cholesterol 76 mg/dl (40-60); Potassium 4.6 mmoL/L (3.5-5.1); Sodium 138 mmol/L (136-145); Total Protein,Serum 7.3 g/dl (6.3-8.2); Triglycerides 225 mg/dl (30-150); VLDL Cholesterol 45 mg/dL (0-40)
[2022-04-19 18:37] LABS: Basophils % 0.4 % (0.1-2.0); Eosinophils # 0.2 K/mm3 (0.0-0.4); Eosinophils % 2.8 % (0.1-12.0); Hematocrit 48.7 % (42.0-52.0); Hemoglobin 14.8 g/dL (14.1-18.0); Lymphocytes # 1.7 K/mm3 (0.7-4.5); Lymphocytes % 26.4 % (10-50); Mean Corpuscular HGB Conc 30.4 g/dL (31.8-35.4); Mean Corpuscular Hemoglobin 29.6 pg (27.0-31.2); Mean Corpuscular Volume 97.4 fl (80-94); Monocytes # 0.4 K/mm3 (0.1-1.0); Monocytes % 6.8 % (1.7-9.3); Neutrophils # 4.1 K/mm3 (1.8-7.8); Neutrophils % 63.5 % (37.0-80.0); Platelet Count 282 K/mm3 (142-424); Red Cell Distribution Width 14.2 % (11.5-17.5); White Blood Count 6.4 K/mm3 (4.8-10.8)
[2022-04-21 08:21] LABS: Direct LDL Cholesterol 114 mg/dL (100-129)
== END ==
PROVIDERS: PCP Internal Medicine Adolescent Medicine; Visit Provider Internal Medicine Adolescent Medicine
DX: E66.9 Obesity, unspecified (principal); K57.92 Diverticulitis of intestine, part unspecified, without perforation or abscess without bleeding; Z68.34 Body mass index [BMI] 34.0-34.9, adult
CPT/HCPCS: 80053; 80061; 85025

== ENCOUNTER 2023-04-22 16:06 | Emergency (ER) | payer OTHER, MEDICARE, SELFPAY ==
[2023-04-22 16:42] VITALS: BP 138/86; PULSE 76; RESP 20; TEMP 36.7; O2SAT 98; BMI 33.7
--- NOTE | 2023-04-22 16:47 | XR_ITS ---
PROCEDURE INFORMATION: Exam: XR Left Shoulder Exam date and time: 04/22/2023 4:56 PM Age: 62 years old Clinical indication: Pain; Shoulder; Left; Additional info: Fall TECHNIQUE: Imaging protocol: Radiologic exam of the left shoulder. Views: 2 or more views. COMPARISON: No relevant prior studies available. FINDINGS: Bones/joints: No acute fracture or dislocation is seen. On the external rotation view, there is an area of irregularity on the lateral humeral head which could be degenerative in nature but is indeterminate by radiograph. Further evaluation with MRI in a nonemergent fashion is suggested. Lungs: Limited visualization of the hemithorax demonstrates no acute pathology. Soft tissues: Normal. IMPRESSION: 1. No evidence for acute injury. 2. Irregularity of the lateral humeral head seen on the external rotation view which has a chronic appearance and for which nonemergent MRI is suggested.
--- NOTE | 2023-04-22 16:47 | XR_ITS ---
PROCEDURE INFORMATION: Exam: XR Left Knee Exam date and time: 04/22/2023 4:51 PM Age: 62 years old Clinical indication: Pain; Knee; Left; Additional info: Fall TECHNIQUE: Imaging protocol: Radiologic exam of the left knee. Views: 3 views. COMPARISON: No relevant prior studies available. FINDINGS: Bones/joints: There is tricompartmental osteoarthritis with loss of joint space, subchondral sclerosis, and productive changes. No acute fracture or dislocation is identified. Soft tissues: Normal. IMPRESSION: Degenerative disease without acute injury identified.
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
[2023-04-22 17:54] VITALS: BP 125/81; PULSE 72; RESP 20; TEMP 36.8; O2SAT 98
== END 2023-04-22 17:55 | disposition home or self-care (01) ==
PROVIDERS: Emergency Provider Emergency Medicine; PCP Family Medicine
DX: M25.512 Pain in left shoulder (principal); M25.562 Pain in left knee; F41.9 Anxiety disorder, unspecified; K21.9 Gastro-esophageal reflux disease without esophagitis; W01.0XXA Fall on same level from slipping, tripping and stumbling without subsequent striking against object, initial encounter
CPT/HCPCS: 73030; 73562; 99284

== ENCOUNTER 2024-08-16 12:18 | Emergency (ER) | payer MEDICARE, SELFPAY ==
[2024-08-16] VITALS (8 sets, daily range): BP systolic 135–190; BP diastolic 87–112; PULSE 82–94; RESP 15–23; TEMP 36.8–36.9; O2SAT 95–98; BMI 46.2
--- NOTE | 2024-08-16 12:28 | ECG_ITS ---
APPROVED REPORT Exam: Resting ECG HR:94 bpm ECG Measurements Heart Rate 94 AXES RI 165 P 35 QRSd 104 QRS 14 QT 336 T 26 QTc 388 Conclusion SINUS RHYTHM NORMAL ECG UNCONFIRMED REPORT Electronically signed by : Bassam Mccabe, 08/17/2024 15:33:27
--- NOTE | 2024-08-16 12:40 | XR_ITS ---
PROCEDURE INFORMATION: Exam: XR Chest Exam date and time: 08/16/2024 12:58 PM Age: 63 years old Clinical indication: Pain; Left-sided; Additional info: Luq pain TECHNIQUE: Imaging protocol: Radiologic exam of the chest. Views: 2 views. COMPARISON: CR XR SHOULDER LT MIN 2V 04/22/2023 4:56 PM FINDINGS: Lungs: Lungs are well aerated without a focal area of consolidation. Pleural spaces: Unremarkable. No pleural effusion. No pneumothorax. Heart/Mediastinum: Unremarkable. No cardiomegaly. Bones/joints: Unremarkable. IMPRESSION: Lungs are well aerated without a focal area of consolidation.
[2024-08-16 12:52] LABS: Coronavirus 19, PCR Not Detected (NotDetected); Influenza A, PCR Not Detected (NotDetected); Influenza B, PCR Not Detected (NotDetected)
[2024-08-16 12:52] LABS: Microscopic, Urine URINE MICROSCOPIC (MICROSCOPIC)
[2024-08-16 12:53] LABS: Basophils % 0.3 % (0.1-2.0); Eosinophils # 0.1 K/mm3 (0.0-0.4); Eosinophils % 0.9 % (0.1-12.0); Hematocrit 44.5 % (42.0-52.0); Hemoglobin 15.4 g/dL (14.1-18.0); Lymphocytes # 1.3 K/mm3 (0.7-4.5); Lymphocytes % 13.1 % (10-50); Mean Corpuscular HGB Conc 34.6 g/dL (31.8-35.4); Mean Corpuscular Hemoglobin 30.9 pg (27.0-31.2); Mean Corpuscular Volume 89.4 fl (80-94); Monocytes # 0.7 K/mm3 (0.1-1.0); Monocytes % 7.2 % (1.7-9.3); Neutrophils # 7.6 K/mm3 (1.8-7.8); Neutrophils % 78.1 % (37.0-80.0); Platelet Count 211 K/mm3 (142-424); Red Blood Count 4.98 M/mm3 (4.60-6.20); Red Cell Distribution Width 12.9 % (11.5-17.5); White Blood Count 9.8 K/mm3 (4.8-10.8)
[2024-08-16 12:59] LABS: Appearance,Urine CLEAR (Clear); Bilirubin,Urine Negative (Negative); Blood, Urine Negative (Negative); Color,Urine YELLOW (Yellow); Glucose,Urine (UA) Negative (Negative); Ketones,Urine Negative (Negative); Leukocyte Esterase,Urine TRACE (Negative); Nitrate,Urine Negative (Negative); Protein,Urine Negative (Negative); Urobilinogen,Urine 0.2 EU/dl (0.2)
[2024-08-16 12:59] LABS: Albumin Level 4.9 g/dl (3.5-5.0); Chloride 102 mmol/L (98-107); Potassium 3.7 mmoL/L (3.5-5.1); Sodium 137 mmol/L (136-145)
[2024-08-16 13:02] LABS: Alanine Aminotransferase 39 U/L (12-78); Albumin/Globulin Ratio 1.6 (1.1-1.8); Alkaline Phosphatase 73 U/L (38-126); Anion Gap 10.7 mEq/L (5-15); Aspartate Amino Transferase 32 U/L (17-59); Bilirubin,Total 0.9 mg/dl (0.2-1.3); Blood Urea Nitrogen 13 mg/dl (9-20); Carbon Dioxide 28 mmol/L (22.0-30.0); Creatinine Clearance Estimated 65 mL/min (50-200); Estimated Glomerular Filt Rate 85 ml/min (>60); GFR (African American) 103 ML/MIN (>60); Total Protein,Serum 7.9 g/dl (6.3-8.2)
[2024-08-16 13:03] LABS: Calcium 9.8 mg/dl (8.4-10.2); Glucose 108 mg/dl (74-100); Lipase 42 U/L (23-300)
--- NOTE | 2024-08-16 13:08 | PC.NURSE ---
PT TO RADIOLOGY
[2024-08-16 13:12] LABS: Bacteria,Urine Trace /lpf; Squamous Epithelial Cell,Urine Occasional #/hpf (0-5); WBC,Urine Occasional #/hpf (0-3)
[2024-08-16 13:16] LABS: Troponin I < 0.01 ng/ml (0.00-0.034)
--- NOTE | 2024-08-16 13:29 | CT_ITS ---
PROCEDURE INFORMATION: Exam: CTA Chest With Contrast Exam date and time: 08/16/2024 1:41 PM Age: 63 years old Clinical indication: Pain; On breathing; Additional info: Luqpainwithbreathing TECHNIQUE: Imaging protocol: Computed tomographic angiography of the chest with contrast. Exam focused on the arteries. 3D rendering (Not supervised by radiologist): MIP and/or 3D reconstructed images were created by the technologist. Radiation optimization: All CT scans at this facility use at least one of these dose optimization techniques: automated exposure control; mA and/or kV adjustment per patient size (includes targeted exams where dose is matched to clinical indication); or iterative reconstruction. Contrast material: ISOVUE; Contrast volume: 70 ml; Contrast route: INTRAVENOUS (IV); COMPARISON: CT ANGIO CHEST PE PROTOCOL 08/16/2024 1:41 PM FINDINGS: Pulmonary arteries: Normal. No pulmonary emboli. Great vessels off aortic arch: Origin of the great vessels including the innominate artery, the right common carotid artery, the subclavian arteries and the left common carotid artery are normal. Aorta: Calcification of the aorta. Minimal. Celiac trunk and mesenteric arteries: Flow within the visualized portions of the celiac artery and superior mesenteric artery. Lungs: Calcified lymph nodes subcarinal region. Lungs are well aerated without a focal area of consolidation. Pleural spaces: Unremarkable. No pneumothorax. No pleural effusion. Heart: Unremarkable. No cardiomegaly. No pericardial effusion. Mediastinal space: Thoracic inlet is unremarkable. Lymph nodes: mediastinum is unremarkable other than a few small mediastinal lymph nodes. No dissection. No visualized embolism as characterized to the most proximal segmental level. Consider alter small lymph nodes right infrahilar region diameter of 1 cm. [place] form of imaging if indicated. Liver: Severe fatty infiltration of the liver. Kidneys: 10 mm calcification left kidney Bones/joints: Unremarkable. No acute fracture. Soft tissues: Soft tissues are unremarkable. IMPRESSION: 1. Severe fatty infiltration of the liver. 2. No dissection. No visualized embolism as characterized to the most proximal segmental level. Consider alternative form of imaging if indicated. 3. Lungs are well aerated without a focal area of consolidation.
--- NOTE | 2024-08-16 13:29 | CT_ITS ---
PROCEDURE INFORMATION: Exam: CT Abdomen And Pelvis With Contrast Exam date and time: 08/16/2024 1:41 PM Age: 63 years old Clinical indication: Abdominal pain; Flank; Left; Additional info: Luq/ left flank tenderness TECHNIQUE: Imaging protocol: Computed tomography of the abdomen and pelvis with contrast. 3D rendering (Not supervised by radiologist): MIP and/or 3D reconstructed images were created by the technologist. Radiation optimization: All CT scans at this facility use at least one of these dose optimization techniques: automated exposure control; mA and/or kV adjustment per patient size (includes targeted exams where dose is matched to clinical indication); or iterative reconstruction. Contrast material: ISOVUE; Contrast volume: 70 ml; Contrast route: IV; COMPARISON: CT ABDOMEN PELVIS WO CON 04/07/2019 12:30 PM FINDINGS: Lungs: visualized portions of the lung bases normal. Liver: Fatty infiltration of the liver. Gallbladder and biliary ducts: Normal. No calcified stones. No ductal dilation. Pancreas: Normal. No ductal dilation. Spleen: Mildly prominent spleen Adrenal glands: Normal. No mass. Kidneys and ureters: 10 mm calcification midpole left kidney. Nonobstructing. Stomach and bowel: Severe diverticulosis. Diverticulitis involving the proximal descending colon. No abscess. No free air. Appendix: Appendix normal. Intraperitoneal space: No free fluid within the pelvis or within the dependent portions of the peritoneum. Vasculature: Calcification of the abdominal aorta. Flow within the superior mesenteric artery, celiac trunk and inferior mesenteric arteries. Lymph nodes: Unremarkable. No enlarged lymph nodes. Urinary bladder: Unremarkable as visualized. Reproductive: Unremarkable as visualized. Bones/joints: osseous structures are unremarkable other than mild degenerative disk disease. No fracture. sclerosis sacroiliac joints bilaterally. No erosive changes. Soft tissues: Periumbilical ventral hernia. Small. IMPRESSION: 1. Severe diverticulosis. Diverticulitis involving the proximal descending colon. No abscess. No free air. 2. No free fluid within the pelvis or within the dependent portions of the peritoneum. 3. Fatty infiltration of the liver. 4. Appendix normal.
[2024-08-16] MEDS: SODIUM CHLORIDE 0.9% 10ML SYR (RAD ONLY) 10 ML IV (13:44)
[2024-08-16] MEDS: IOPAMIDOL-370 (76%);100ML BOTTLE 70 ML IV (13:44)
[2024-08-16] MEDS: 0.9 % SODIUM CHLORIDE 50 ML VIAL IV (13:44)
[2024-08-16] MEDS: ONDANSETRON 4MG/2ML VIAL 4 MG IV (15:24)
[2024-08-16] MEDS: MORPHINE 4MG/ML SYRINGE 4 MG IV (15:24)
--- NOTE | 2024-08-16 17:35 | ED_ITS ---
<Statement entered by Noreen Mccabe MD - 08/17/24 15:28> I was consulted by the ROBERT, and we discussed the complexity of the problems being addressed. I approved the treatment and management plan for this patient's care in the emergency department, thus performing a substantive portion of the medical decision making. Noreen Mccabe MD, NATY, FACEP Discharge Plan Disposition Patient Disposition: Home, Self-Care Condition: Good Prescriptions Prescriptions: New amoxicillin-pot clavulanate 875-125 mg tablet 1 tab PO Q12 Qty: 20 0RF No Action alprazolam 1 mg tablet 1 mg PO TID PRN (Reason: Anxiety) Qty: 90 2RF omeprazole 40 mg capsule,delayed release(DR/EC) See Rx Instructions .ROUTE .COMPLEX Qty: 30 2RF Dose Instruction: TAKE 1 CAPSULE BY MOUTH DAILY Rx Instructions: TAKE 1 CAPSULE BY MOUTH DAILY Referrals Follow up/Referrals: Juan Trevino II, MD [Staff Physician] - See instructions Spencer Gary MD [Primary Care Provider] - See instructions Activity Restrictions/Add. Instructions Additional Instructions/Restrictions: You were seen for diverticulitis. Please follow up with GI for further evaluation. Your blood pressure was also elevated, please continue to follow closely with your PCP. Your CT also showed fatty liver, calcification in the kidney, periumbilical hernia. Clinical Impressions Clinical Impression: Diverticulitis Instructions Patient Instructions: DI for Diverticulitis Print Language Print Language: Turkish Discharge ED Provider: Noreen Mccabe General Adult HPI General Chief complaint: PAIN Stated complaint: left side pain Time Seen by Provider: 08/16/24 12:32 Mode of Arrival: Ambulatory Source of Information: Patient and Spouse Limitations: No Limitations Description of Symptoms (Recalled from ER Triage Doc. by RN): pt states he has left lung pain that started yesterday, denies any chest pain or soa and states he only feels it when he takes a deep breath, pt is alox4 upon triage and stable. pt only has pmh of gerd and anxiety. pt denies any fever n/v/d History of Present Illness HPI narrative: Patient presents with left-sided abdominal pain. He reports that his pain is worse with breathing. Denies any shortness of breath. Denies any vomiting or diarrhea. He does report a history of diverticulitis. Denies fever or cough. Pain started yesterday. Reports that his pain was more intense this morning. MD complaint: Abdominal pain Onset (ago): day(s) (2) Location: abdomen Radiation: non-radiation Severity: moderate Consistency: intermittent Relieving factors: none Exacerbating factors: other (Breathing) Associated symptoms: denies other symptoms Treatments prior to arrival: none Related Data Previous Rx's ?Medication ?Instructions ?Recorded alprazolam 1 mg tablet 1 mg PO TID PRN Anxiety #90 tabs 06/10/24 omeprazole 40 mg capsule,delayed See Rx Instructions .Route 07/06/24 release .COMPLEX #30 caps amoxicillin 875 mg-potassium 1 tab PO Q12 #20 tabs 08/16/24 clavulanate 125 mg tablet Allergies Allergy/AdvReac Type Severity Reaction Status Date / Time No Known Allergies Allergy Verified 07/28/24 08:42 [facility] Disclaimer: The information contained in this section may have been updated after the patient was seen, as this information can be updated by other users. Medical History GERD (gastroesophageal reflux disease) Anxiety Anxiety is well controlled. Patient reports no new concerns and is tolerating medication well. Surgical History No history of previous surgery Family History Brother Cancer Social History Smoking Status: Never smoker years smoked: 30 how long ago did patient quit smoking: >20 years second hand exposure: No alcohol intake: current alcohol intake frequency: a few times a week substance use type: denies use counseling given: Yes current occupational status: disabled Travel in the last 8 weeks: None household members: spouse, family and children housing: house current occupational exposures/hazards: No caffeine: Yes Have you lived/traveled outside US in past 30 days?: No Contact w/someone who lives/traveled outside US past 30 days?: No Exposure to someone with infectious disease in past 14 days?: No Do you have a fever (greater than 100.4 F or 38 C)?: No Have you tested positive for COVID-19: No Exposed to someone with COVID-19 in past 14 days?: No Do you have a sore throat?: No Do you have a cough?: No Do you have any weakness?: No Do you have any diarrhea?: No Are you experiencing any unusual bleeding?: No Do you have any muscle aches/pain?: No Do you have any abdominal pain?: No Are you experiencing loss of taste or smell?: No Other Medical History Have you received the Flu Vaccine for this season: No Have you received the Pneumonia Vaccine: No ROS Obtained: Yes Systems reviewed as appropriate & no additional complaints except as documented Physical Exam General General appearance: alert and in no apparent distress Head Head exam: atraumatic and normocephalic Eye Eye exam: Present normal appearance and EOMI Chest Chest inspection: Present symmetric chest wall rise Respiratory Respiratory exam: Present normal lung sounds bilaterally; Absent wheezes or stridor Cardiovascular Cardiovascular exam: Present regular rate and normal rhythm; Absent systolic murmur Abdominal Exam Abdominal exam: Present soft and tenderness (Left lateral with left CVA tenderness); Absent distention Extremities Exam Extremities exam: Present full ROM Neurological Exam Neurological exam: Present alert and oriented X3 Psychiatric Psychiatric exam: Present normal affect and normal mood Skin Skin exam: Present warm, dry and intact Medical Decision Making Medical Records Screening: Per USPSTF and CDC recommendations, given the prevalence of disease in our region, it is our hospital?s policy to screen for HIV and viral Hepatitis for all patients aged 18 and over and those with ongoing risk factors. Tez Inquiry Pt receiving controlled substance: No Vital Signs: 08/16/24 12:19 08/16/24 13:00 08/16/24 13:12 Temperature 98.2 F Temperature Source Oral Pulse Rate 88 92 H Pulse Rate [Left Radial] 94 H Respiratory Rate 20 19 16 Blood Pressure 190/112 H 147/100 H Blood Pressure [Right Arm] 173/103 H Blood Pressure Mean [Right Arm] 126 02 Sat by Pulse Oximetry 98 95 95 Oxygen Delivery Method Room Air Room Air Room Air 08/16/24 13:30 08/16/24 14:00 08/16/24 14:30 Temperature Temperature Source Pulse Rate 85 82 91 H Pulse Rate [Left Radial] Respiratory Rate 18 17 15 Blood Pressure 145/87 H 135/88 135/97 H Blood Pressure [Right Arm] Blood Pressure Mean [Right Arm] 02 Sat by Pulse Oximetry 96 97 96 Oxygen Delivery Method Room Air Room Air Room Air 08/16/24 14:54 08/16/24 15:22 Temperature 98.5 F Temperature Source Oral Pulse Rate 91 H 86 Pulse Rate [Left Radial] Respiratory Rate 23 20 Blood Pressure 164/103 H 135/88 Blood Pressure [Right Arm] Blood Pressure Mean [Right Arm] 02 Sat by Pulse Oximetry 97 Oxygen Delivery Method Room Air Room Air Lab Data Lab Results 08/16/24 10:35: WBC 9.8, RBC 4.98, Hgb 15.4, Hct 44.5, MCV 89.4, MCH 30.9, MCHC 34.6, RDW 12.9, Plt Count 211, MPV 10.0, Neut % (Auto) 78.1, Lymph % (Auto) 13.1, [place] % (Auto) 7.2, Eos % (Auto) 0.9, Baso % (Auto) 0.3, Neut # (Auto) 7.6, Lymph # (Auto) 1.3, [place] # (Auto) 0.7, Eos # (Auto) 0.1, Baso # (Auto) 0.0, Sodium 137, Potassium 3.7, Chloride 102, Carbon Dioxide 28, Anion Gap 10.7, BUN 13, Creatinine 0.90, Estimated Creat Clear 65, Estimated GFR 85, Est GFR ( Amer) 103, Glucose 108 H, Calcium 9.8, Total Bilirubin 0.9, AST 32, ALT 39, Alkaline Phosphatase 73, Troponin I < 0.01, Total Protein 7.9, Albumin 4.9, Globulin 3.0, Albumin/Globulin Ratio 1.6, Lipase 42 08/16/24 12:29: Urine Color Yellow, Urine Appearance Clear, Urine pH 6.0, Ur Specific [place] 1.020, Urine Protein Negative, Urine Glucose (UA) Negative, Urine Ketones Negative, Urine Blood Negative, Urine Nitrate Negative, Urine Bilirubin Negative, Urine Urobilinogen 0.2, Ur Leukocyte Esterase Trace, Urine RBC None, Urine WBC Occasional, Ur Squamous Epith Cells Occasional, Urine Bacteria Trace 08/16/24 12:35: SARS-CoV-2 (PCR) Not detected, Influenza A Untype (PCR) Not detected, Influenza Type B (PCR) Not detected 08/16/24 10:35 08/16/24 10:35 Orders (Tests/Meds): ED MEDICATIONS Discontinued Medications Generic Name Dose Route Start Last Admin Trade Name Freq PRN Reason Stop Dose Admin Iopamidol 70 ml 08/16/24 13:43 08/16/24 13:44 Iopamidol-370 (76%);100ml Bottle IV 08/16/24 13:44 70 ml ONCE ONE Administration Morphine Sulfate 4 mg 08/16/24 15:15 08/16/24 15:24 Morphine 4mg/Ml Syringe IV 08/16/24 15:16 4 mg ONCE ONE Administration Ondansetron HCl 4 mg 08/16/24 15:18 08/16/24 15:24 Ondansetron 4mg/2ml Vial IV 08/16/24 15:19 4 mg ONCE ONE Administration Sodium Chloride 10 ml 08/16/24 12:40 Sodium Chloride 0.9% 10ml Flush Syringe IV 09/15/24 12:39 NEEDED PRN Maintain IV Site Sodium Chloride 10 ml 08/16/24 13:43 08/16/24 13:44 Sodium Chloride 0.9% 10ml Syr (Rad Only) IV 08/16/24 13:44 10 ml ONCE ONE Administration Sodium Chloride 50 ml 08/16/24 13:43 08/16/24 13:44 0.9 % Sodium Chloride 50 Ml Vial IV 08/16/24 13:44 50 ml ONCE ONE Administration ORDERS Category Date Time Status CT abdomen pelvis w con Stat Cat Scan 08/16/24 13:29 Completed CTA Chest [CT angio chest PE protocol] Stat Cat Scan 08/16/24 13:29 Completed XR chest 2V Stat Exams 08/16/24 12:40 Completed Complete Blood Count Auto Diff Stat Lab 08/16/24 10:35 Completed Comprehensive Metabolic Panel Stat Lab 08/16/24 10:35 Completed Lipase Stat Lab 08/16/24 10:35 Completed Rapid PCR Covid and Flu A/B Routine Lab 08/16/24 12:35 Completed Troponin I Stat Lab 08/16/24 10:35 Completed UA [Urinalysis and Microscopic] Stat Lab 08/16/24 12:29 Completed Medical Decision Narrative: In summary patient is a 63-year-old male who presents the emergency department for evaluation of abdominal pain. Patient is hypertensive upon arrival, afebrile. Left lateral abdominal tenderness and CVA tenderness. Differential diagnosis includes UTI, diverticulitis, pulmonary embolism. Initial workup will be conducted with labs, CTA chest and CT abdomen and pelvis. Initial workup reviewed by me reveal diverticulitis on CT. Upon repeat evaluation patient is comfortable and ready for discharge. Given this patient is appropriate for discharge with outpatient antibiotics. Given follow-up with GI as an outpatient. Discussed all incidental findings including fatty liver, renal calcification, periumbilical hernia and lymph node on CTA, advised to discuss all of these with his PCP. Critical Care Critical Care Time Critical Care Time: No
--- NOTE | 2024-08-16 17:43 | PC.NURSE ---
LAB NOTIFIED OF LATE ADD ON URINE CULTURE
--- NOTE | 2024-08-19 10:43 | PC.NURSE ---
UA DISCUSSED WITH DR EVANS, NO NEW ORDERS
== END 2024-08-16 15:38 | disposition home or self-care (01) ==
PROVIDERS: Physician Assistant; Emergency Provider Student in an Organized Health Care Education/Training Program; PCP Family Medicine
DX: K57.92 Diverticulitis of intestine, part unspecified, without perforation or abscess without bleeding (principal); R10.9 Unspecified abdominal pain
CPT/HCPCS: 71046; 71275; 74177; 80053; 81001; 83690; 84484; 85025; 87086; 87088; 87186; 87636; 93005; 96374; 96375; 99285; J2270; J2405; Q9967

== ENCOUNTER 2024-10-22 10:52 | Day surgery (SDC) | payer MEDICARE, SELFPAY ==
[2024-10-20 13:28] VITALS: BMI 35.5
[2024-10-22] MEDS: LACTATED RINGERS 1000ML 1,000 ML 50 ML IV (12:20)
[2024-10-22 12:23] VITALS: BP 140/85; PULSE 78; RESP 18; TEMP 36.3; O2SAT 99
--- NOTE | 2024-10-22 12:36 | EXP.ANES.CKL ---
[facility] Disclaimer: The information contained in this section may have been updated after the patient was seen, as this information can be updated by other users. Medical History GERD (gastroesophageal reflux disease) Anxiety Anxiety is well controlled. Patient reports no new concerns and is tolerating medication well. Surgical History No history of previous surgery Family History Brother Cancer Social History Smoking Status: Never smoker years smoked: 30 how long ago did patient quit smoking: >20 years second hand exposure: No alcohol intake: current alcohol intake frequency: a few times a week substance use type: denies use counseling given: Yes current occupational status: disabled Travel in the last 8 weeks: None housing: house current occupational exposures/hazards: No caffeine: Yes Have you lived/traveled outside US in past 30 days?: No Contact w/someone who lives/traveled outside US past 30 days?: No Exposure to someone with infectious disease in past 14 days?: No Do you have a fever (greater than 100.4 F or 38 C)?: No Have you tested positive for COVID-19: No Exposed to someone with COVID-19 in past 14 days?: No Do you have a sore throat?: No Do you have a cough?: No Do you have any weakness?: No Do you have any diarrhea?: No Are you experiencing any unusual bleeding?: No Do you have any muscle aches/pain?: No Do you have any abdominal pain?: No Are you experiencing loss of taste or smell?: No [facility] Anesthesia Checklist Patient Identification Patient Identification: Arm Band Structural Data Admitted From: Home Planned Operative Procedure/s: Colonoscopy Consent for Planned Operative Procedure(s) Verified: Yes Verified Documents: Surgical Consent and History and Physical NPO Status Verified Time NPO: 08:30 (finished prep) Additional verifications Anesthesia Reactions: No Hx Blood Transfusions: No Blood Transfusion Reaction: No Airway Assessment Mallampati Score:: Class II C-Spine Mobility Assessed: Yes TMJ Mobility Assessed: Yes Dentition: Good Dentition Neurological Assessment Level of Consciousness: Awake, Alert and Appropriate Anesthesia Plan Anesthesia Risk discussed: Yes Anesthesia Plan: Verified ASA Class: II Anesthesia Type: MAC
--- NOTE | 2024-10-22 13:24 | P.HP_ITS ---
History of Present Illness *Admission Date: 10/22/24 *Reason for visit:: Uncomplicated diverticulitis and personal history of a denomatous polyps *History of present illness: Mr. Torres is a 63-year-old gentleman who is here for initial gastroenterology consultation. The patient has been following with Dr. Sean Matos for a personal history of adenomatous colon polyps and a history of recurrent diverticulitis. The patient was having some recurrences of diverticulitis. He did have a colonoscopy by Dr. Matos and was found to have 3 polyps 2 of which were larger polypoid lesions and were tubulovillous adenomas without any evidence of high-grade dysplasia. The patient had been hospitalized with his diverticulitis for 5 years ago which required a brief inpatient stay. Since then he had done well until last month when he had a recurrent bout of left lower quadrant abdominal pain. His CAT scan of the abdomen and pelvis on 08/16/2024 did show severe diverticulosis with diverticulitis involving the proximal descending colon. There was no complication such as abscess or p erforation. There was no free fluid. There was evidence of fatty infiltration of the liver. The patient's lab work at that time showed normal WBC count of 9.8. His hemoglobin hematocrit were normal at 15.4 and 44.5. He also had normal liver chemistries with AST 32, ALT 39, alkaline phosphatase 73 and total bilirubin 0.4. The patient has had no interval colonoscopy since the colonoscopy in June 2020 (3 polyps (small tubular adenomas x 2/benign retention polyp x 1). It was in April 2019 at which time he had the 2 larger tubulovillous adenomas with prolapse. At that time he had 4 additional polyps (hyperplastic polyps x 3/tubular adenoma x 1) removed. The patient reports no rectal bleeding, weight loss or fever. He does have a cousin with colon cancer. [facility] Disclaimer: The information contained in this section may have been updated after the patient was seen, as this information can be updated by other users. Medical History GERD (gastroesophageal reflux disease) Anxiety Anxiety is well controlled. Patient reports no new concerns and is tolerating medication well. Surgical History No history of previous surgery Family History Brother Cancer Social History Smoking Status: Never smoker years smoked: 30 how long ago did patient quit smoking: >20 years second hand exposure: No alcohol intake: current alcohol intake frequency: a few times a week substance use type: denies use counseling given: Yes current occupational status: disabled Travel in the last 8 weeks: None housing: house current occupational exposures/hazards: No caffeine: Yes Have you lived/traveled outside US in past 30 days?: No Contact w/someone who lives/traveled outside US past 30 days?: No Exposure to someone with infectious disease in past 14 days?: No Do you have a fever (greater than 100.4 F or 38 C)?: No Have you tested positive for COVID-19: No Exposed to someone with COVID-19 in past 14 days?: No Do you have a sore throat?: No Do you have a cough?: No Do you have any weakness?: No Do you have any diarrhea?: No Are you experiencing any unusual bleeding?: No Do you have any muscle aches/pain?: No Do you have any abdominal pain?: No Are you experiencing loss of taste or smell?: No Other Medical History Have you received the Flu Vaccine for this season: No Have you received the Pneumonia Vaccine: No Review of Systems Review of Systems Review of systems (narrative): Negative *Cardiovascular Comments: Negative *Gastrointestinal Comments: Negative *Genitourinary Comments: Negative *Musculoskeletal Comments: Negative *Neurologic Comments: Negative Meds Home Medications and Allergies Home Medications ?Medication ?Instructions ?Recorded ?Confirmed ?Type omeprazole 40 mg capsule,delayed See Rx Instructions .Route 07/06/24 10/22/24 Rx release .COMPLEX #30 caps alprazolam 1 mg tablet (Xanax) 1 mg PO TID PRN Anxiety 10/20/24 10/22/24 History New Prescriptions to Start Prescriptions: Allergies Allergy/AdvReac Type Severity Reaction Status Date / Time No Known Allergies Allergy Verified 09/08/24 15:13 Exam Data for Last 24 hours Vital signs and Labs for Last 24 Hours: Temp Pulse Resp BP Pulse Ox O2 Del Method 97.4 F L 78 18 140/85 99 Room Air 10/22/24 12:23 10/22/24 12:23 10/22/24 12:23 10/22/24 12:23 10/22/24 12:23 10/22/24 12:23 I & O for Last 24 hours: Intake & Output 10/19/24 10/20/24 10/21/24 10/22/24 23:59 23:59 23:59 23:59 Weight 220 lb *Routine HEENT Exam Head: Present normocephalic Eye: Present EOMI and PERRL ENT: Present mucous membranes moist *Routine Neck Exam Neck: Present supple *Routine Respiratory Exam Respiratory: Present CTA bilaterally *Routine Cardiovascular Exam Cardiovascular: Present RRR *Routine Abdominal Exam Abdominal: Present soft and normoactive bowel sounds; Absent tenderness *Routine Rectal Exam Rectal:: deferred *Routine Genitalia Exam Genitalia:: deferred *Routine Extremities Exam Extremities: Absent cyanosis, clubbing or edema *Routine Skin Exam Skin: Present warm; Absent rash *Routine Neurological Exam Neurological: Present alert and oriented X3 Assessment and Plan *Assessment and plan (1) Personal history of adenomatous and serrated colon polyps: Status: Acute Category: Medical Code(s): Z86.0101 - Personal history of adenomatous and serrated colon polyps (2) Diverticulitis of intestine without perforation or abscess: Status: Acute Category: Medical Code(s): K57.92 - Diverticulitis of intestine, part unspecified, without perforation or abscess without bleeding Plan A/P: 1. Personal history of adenomatous colon polyps is the preprocedural diagnosis. The patient will be anesthetized/sedated using MAC sedation. The patient has been seen and examined. Cardiac and lung assessment prior to the examination is stable. Proceed with planned surveillance colonoscopy
--- NOTE | 2024-10-22 13:26 | [facility].PROCNOTE ---
[facility] Procedure Note Date: 10/22/24 Time: 13:46 Procedure Note:: Colonoscopy Procedure Report: Colonoscopy with cold snare polypectomy Endoscopist: Juan Trevino II, MD Referring physician: Spencer Gary MD Date of Procedure: October 22, 2024 Equipment: Olympus 190 variable stiffness pediatric colonoscope Sedation: MAC sedation Indication: Mr. Torres is a 63-year-old gentleman who is here for surveillance colonoscopy secondary to a personal history of adenomatous polyps. The patient has been following with Dr. Sean Matos for a personal history of adenomatous colon polyps and a history of recurrent diverticulitis. The patient was having some recurrences of diverticulitis. He did have a colonoscopy by Dr. Matos and was found to have 3 polyps 2 of which were larger polypoid lesions and were tubulovillous adenomas without any evidence of high-grade dysplasia. The patient had been hospitalized with his diverticulitis for 5 years ago which required a brief inpatient stay. Since then he had done well until last month when he had a recurrent bout of left lower quadrant abdominal pain. His CAT scan of the abdomen and pelvis on 08/16/2024 did show severe diverticulosis with diverticulitis involving the proximal descending colon. There was no complication such as abscess or perforation. There was no free fluid. There was evidence of fatty infiltration of the liver. The patient's lab work at that time showed normal WBC count of 9.8. His hemoglobin hematocrit were normal at 15.4 and 44.5. He also had normal liver chemistries with AST 32, ALT 39, alkaline phosphatase 73 and total bilirubin 0.4. The patient has had no interval colonoscopy since the colonoscopy in June 2020 (3 polyps (small tubular adenomas x 2/benign retention polyp x 1). It was in April 2019 at which time he had the 2 larger tubulovillous adenomas with prolapse. At that time he had 4 additional polyps (hyperplastic polyps x 3/tubular adenoma x 1) removed. The patient reports no rectal bleeding, weight loss or fever. He does have a cousin with colon cancer. Procedure: Prior to the procedure, a history and physical exam was performed, and patient's medications and allergies were reviewed. The risks, benefits and alternatives of the sedation and procedure were discussed with the patient. All questions were answered and informed consent was obtained. The patient was brought to the procedure room. Patient identification and proposed procedure were verified by the physician and the nurse. The patient was placed in a left lateral decubitus position and the scope was passed under direct vision. Throughout the procedure, the patient's blood pressure, pulse, and oxygen saturations were monitored continuously. The colonoscopy was accomplished without difficulty. The patient tolerated the procedure well. Findings: On digital rectal examination there was normal rectal tone. There were no external hemorrhoids. The colonoscope was introduced through the anal canal to the rectum and advanced to the cecum. The ileocecal valve and appendiceal orifice were identified. The scope was advanced a short distance into the ileum which appeared grossly normal. The scope was then withdrawn into the colon. There were 2 polyps (ascending x 1 (3 mm) and descending x 1 (4 mm)). Both of these were removed via cold snare polypectomy. The remaining cecum, ascending and transverse colon and mucosa were grossly normal. There were extensively scattered diverticuli throughout the descending and sigmoid colon (LEFT colon). There was spot ink tattoo submucosally in the sigmoid colon. The rectum itself was normal. Upon retroflexion within the rectum there were grade 2 internal hemorrhoids. The preparation was excellent throughout with [place] Preparation Score of 9. The cecal time was 12 minutes. Impression: 1. Diminutive colonic polyps x 2 2. Extensive left-sided diverticulosis 3. Grade 2 internal hemorrhoids Plan: I will follow-up the polyp histology and recommend repeat surveillance colonoscopy again in 5 to 7 years. I would recommend continuation of the dietary measures and psyllium Konsyl.
[2024-10-22 13:30] VITALS: O2SAT 100
[2024-10-22 13:53] VITALS: BP 124/76; PULSE 80; RESP 16; O2SAT 98
[2024-10-22 14:03] VITALS: BP 117/78; PULSE 65; RESP 18; O2SAT 98
[2024-10-22 14:13] VITALS: BP 127/73; PULSE 66; RESP 16; O2SAT 98
[2024-10-22 14:23] VITALS: BP 142/79; PULSE 67; RESP 16; O2SAT 98
== END 2024-10-22 14:28 | disposition home or self-care (01) ==
PROVIDERS: PCP Family Medicine; Visit Provider Internal Medicine Gastroenterology
PROC: 0DJD8ZZ Inspection of Lower Intestinal Tract, Via Natural or Artificial Opening Endoscopic (ICD-10-PCS; CPT 45378; principal; 2024-10-22 12:30)
DX: K63.5 Polyp of colon (principal); K57.30 Diverticulosis of large intestine without perforation or abscess without bleeding; K64.1 Second degree hemorrhoids; Z86.0101 Personal history of adenomatous and serrated colon polyps; K57.92 Diverticulitis of intestine, part unspecified, without perforation or abscess without bleeding
CPT/HCPCS: 45385; J7120